=== PATIENT | male | born 1955 | race Caucasian/White ===

== ENCOUNTER 2023-02-14 21:13 | Emergency (ER) | payer BC ==
--- OUTSIDE RECORDS SUMMARY | 2023-02-14 21:17 | XMS REPORT | Continuity of Care Document ---
:1955 Author Organization [facility] t Address [address] [facility] [address] [place] [address] Care Team Providers Name Role Phone Asked, No Pcp Primary Care Physician Unavailable Negin Bocanegra Attending Clinician Tom Gramajo MD Attending Clinician Jeramie Cueva PTA Attending Clinician Unavailable Lindsey Busch PT Attending Clinician Unavailable Yeimy Bhatti PTA Attending Clinician Unavailable Annalee Mann RN Attending Clinician Unavailable Cherelle Rojo PT Attending Clinician Unavailable Renata San MD Attending Clinician [phone] Mita Mittal APRN Attending Clinician [phone] Kayla Murphy RN Attending Clinician Unavailable Lanette Adan Attending Clinician Unavailable Provider, Unknown Attending Clinician Unavailable TOM DIALLO Attending Clinician Unavailable MD TOM GRAMAJO Attending Clinician Unavailable TOM GRAMAJO Admitting Clinician Unavailable MD TOM GRAMAJO Admitting Clinician Unavailable Problems Condition Condition Condition Status Onset Resolution Last Treating Co mments Source Name Details Category Date Date Treatment Clinician Date Status Status Disease Active Methodi post left post left 2-20 st knee knee 00:00: Hospita replacemen replacemen 00 l t, t, 09/10/22 09/10/22 Primary Primary Disease Active 2021-08 Overview: Meth kayla osteoarthr osteoarthr 2-[address] itis of itis of 00:00: g of this Hospi ta left knee left knee 00 note l might be different from the original. Added automatic ally from request for surgery [id number] History of History of Disease Active M ethodi total total 6-18 st right hip right hip 00:00: Hosp [facility] arthroplas arthroplas 00 l ty, ty, anterior. anterior. 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 Social History Social Habit Start Date Stop Date Quantity Comments Source Gender [facility] Sexual orientation [facility] Alcohol intake 2022-11-17 2022-11-17 Current drinker [facility] dist 00:00:00 00:00:00 of alcohol Hospital (finding) History of Social 2022-11-17 2022-11-[address] function 00:00:00 00:00:00 Hospital Tobacco use and 2022-07-07 2022-07-07 Smokeless [facility] exposure 00:00:00 00:00:00 tobacco non-user Hospital Sex Assigned At [birth year] [facility] 00:[facility] 00[facility]00 Hospital Smoking Status Start Date Stop Date Source Never smoked tobacco [facility] Medications Ordered Filled Start Stop Current Ordering Indication Dosage Frequency Signature Comments Components Source Medication Medication Date Date Medication? Clinician (SIG) Name Name ibuprofen Yes 200mg Q6H Take 1 Metho di (ADVIL) 200 4-[address] MG tablet 14:15: (200 mg Hospi ta 54 total) by l mouth every 6 (six) hours as needed for mild pain. HYDROcodone 2022- [place] [address] 1{tbl} Q6H Take 1 Methodi -acetaminop 2 02-[address] hen ([place]) 00:00: 05:59 mouth Hosp [facility] 10-325 mg 00 :00 every 6 l per tablet (six) hours as needed for moderate pain for up to 7 days .acute pain. Start after surgery. Max Daily Amount: 4 tablets aspirin 2022- No 81mg Q.5D Take 1 [facility] (ECOTRIN) 09-09 03-10 tablet (81 st 81 MG 00:00: 05:59 mg total) Hospit a enteric 00 :00 by mouth 2 l coated (two) tablet times a day for 30 days. Take with food amoxicillin 2022- No [id number] Take 4 [facility] (AMOXIL) 09-01- caps PO 1 st 500 MG 00:00: 05:59 hour prior Hosp [facility] capsule 00 :00 to dental l procedure. Vital Signs Vital Name Observation Time Observation Value Comments Source Body height 2022-11-17 19:15:00 182.9 cm [facility] Body weight 2022-11-17 19:15:00 93.441 kg [facility] BMI 2022-11-17 19:15:00 27.94 kg/m2 [facility] Systolic blood 2022-09-10 20:54:00 159 mm[Hg] [facility] Diastolic blood 2022-09-10 20:54:00 93 mm[Hg[facility] Heart rate 2022-09-10 20:54:00 60 /min [facility] Oxygen saturation in 2022-09-10 20:54:00 99 /min [facility] Arterial blood by Pulse oximetry Body temperature 2022-09-10 20:38:00 35.94 Adeola [facility] Respiratory rate 2022-09-10 20:38:00 18 /min [facility] Procedures Procedure Date / Time Performing Clinician Source Performed XR KNEE 3 VW LEFT 2022-09-22 20:58:[address] [facility] HC NERVE BLOCK INJ 2022-09-10 19:14:16 Jaswinder [facility] FEMORAL SINGLE W IMG ALEAH Francie ANESTHESIA SPINAL BLOCK 2022-09-10 19:12:58 Jaswinder [facility] Francie XR KNEE 1 OR 2 VW LEFT 2022-09-10 16:45:44 Avila, [facility] POC GLUCOSE 2022-09-10 16:34:00 Avila, [facility] SURGICAL PATHOLOGY 2022-09-10 15:51:00 Avila, [facility] REQUEST AK AN ELECTIVE 2022-09-10 14:03:00 Chon [facility] SUPRAGLOTTIC AIRWAY ARTHROPLASTY, KNEE, TOTAL 2022-09-10 13:55:00 Avila, [facility] POC GLUCOSE 2022-09-10 12:52:00 Avila, [facility] HEMOGLOBIN A1C 2022-08-25 22:45:00 [facility] PARTIAL THROMBOPLASTIN 2022-08-25 22:45:00 [facility] TIME (PTT) PROTHROMBIN TIME WITH INR 2022-08-25 22:45:00 [facility] CBC WITH PLATELET AND 2022-08-25 22:45:00 [facility] DIFFERENTIAL COMPREHENSIVE METABOLIC 2022-08-25 22:45:00 [facility] PANEL ESTIMATED GFR 2022-08-25 22:45:00 [facility] ECG PRE/POST OP 2022-08-25 22:42:28 [facility] URINE CULTURE 2022-08-25 22:35:00 [facility] URINALYSIS SCREEN AND 2022-08-25 22:35:00 [facility] MICROSCOPY, WITH REFLEX TO CULTURE XR LEG LENGTH EVALUATION 2022-07-07 20:06:32 AvilaTom lora wayne [facility] Encounters Start End Encounter Admission Attending Care Care Encounter Source Date/Time Date/Time Type Type Clinicians Facility Department ID 2022-11-17 2022-11-17 Office Evelyn 1.2.840.1 [id number] Methodi 14:00:00 16:07:27 Visit , Negin 41524.1.[address] 3.430.2.7 Hospit a .3.292150 l .8 2022-11-17 2022-11-17 Travel 1.2.840.1 1.2.263.136 4107 [id number] Methodi 00:00:00 00:00:[address] 3.430.2.7 0.2.7.3.698 Ho spita .3.370304 084.8 l .8 2022-11-17 2022-11-17 Outpatient [facility] [id number] [place] 00:00:00 00:00:[address] 2022-11-06 2022-11-06 Treatment AvilaTom 1.2.840.1 1 [id number] Methodi 07:00:00 08:00:00 Jeramie Cueva [address]20.1.[address] 3.430.2.7 Hospit a .3.823100 l .8 2022-11-06 2022-11-06 Outpatient AVILA, [facility] [id number] [address] [place] [address] 00:00:00 00:00:00 TOM Holm [facility] 2022-11-04 2022-11-04 Treatment AvilaTom 1.2.840.1 1 [id number] Methodi 07:00:00 08:00:00 Lindsey Busch 43323.1.1 634 s t 3.430.2.7 Hospit a .3.039586 l .8 2022-11-04 2022-11-04 Travel 1.2.840.1 1.2.821.537 4517 [id number] Methodi 00:00:00 00:00:[address] 3.430.2.7 0.2.7.3.698 Ho spita .3.197911 084.8 l .8 2022-11-04 2022-11-04 Outpatient AVILA, [facility] [id number] [place] 00:00:00 00:00:00 TOM [address] 2022-10-30 2022-10-30 Treatment Avila, Tom Gary 1.2.840.1 1 [id number] Methodi 07:00:00 08:00:00 Jeramie Cueva [address]62.[address] 3.430.2.7 Hospit a .3.652985 l .8 2022-10-30 2022-10-30 Travel 1.2.840.1 1.2.358.199 2047 [id number] Methodi 00:00:00 00:00:[address] 3.430.2.7 0.2.7.3.698 Ho spita .3.044419 084.8 l .8 2022-10-30 2022-10-30 Outpatient AVILA, [facility] [id number] [place] 00:00:00 00:00:00 TOM [address] 2022-10-28 2022-10-28 Treatment Avila, Tom Gary 1.2.840.1 1 [id number] Methodi 07:00:00 08:00:00 Lindsey Busch 26780.1.1 405 s t 3.430.2.7 Hospit a .3.834938 l .8 2022-10-28 2022-10-28 Travel 1.2.840.1 1.2.945.169 5337 [id number] Methodi 00:00:00 00:00:[address] 3.430.2.7 0.2.7.3.698 Ho spita .3.690379 084.8 l .8 2022-10-28 2022-10-28 Outpatient AVILA, [facility] [id number] [place] 00:00:00 00:00:00 TOM [address] 2022-10-23 2022-10-23 Treatment Avila, Tom Hernandezanson 1.2.840.1 1 [id number] Methodi 07:00:00 08:00:00 Lindsey Busch 03389.1.1 146 s t 3.430.2.7 Hospit a .3.769581 l .8 2022-10-23 2022-10-23 Outpatient AVILA, [facility] [id number] [place] 00:00:00 00:00:00 TOM [address] 2022-10-21 2022-10-21 Treatment Avila, Tom Gary 1.2.840.1 1 [id number] Methodi 07:00:00 08:00:00 Lindsey Busch 71007.1.1 144 s t 3.430.2.7 Hospit a .3.695404 l .8 2022-10-21 2022-10-21 Outpatient AVILA, [facility] [id number] [place] 00:00:00 00:00:00 TOM [address] 2022-10-15 2022-10-15 Treatment Avila, Tom Hernandezanson 1.2.840.1 1 [id number] Methodi 07:00:00 08:00:00 Jeramie Cueva [address]607.1.[address] 3.430.2.7 Hospit a .3.052127 l .8 2022-10-15 2022-10-15 Outpatient AVILA, [facility] [id number] [place] 00:00:00 00:00:00 TOM [address] 2022-10-13 2022-10-13 Treatment Avila, Tom Gary 1.2.840.1 1 [id number] Methodi 07:00:00 08:00:00 Lindsey Busch 61367.1.1 156 s t 3.430.2.7 Hospit a .3.301383 l .8 2022-10-13 2022-10-13 Outpatient AVILA, [facility] [id number] [place] 00:00:00 00:00:00 TOM [address] 2022-10-09 2022-10-09 Treatment Avila, Tom Gary 1.2.840.1 1 [id number] Methodi 07:00:00 08:00:00 Jeramie Cueva [address]178.1.[address] 3.430.2.7 Hospit a .3.991106 l .8 2022-10-09 2022-10-09 Outpatient AVILA, [facility] [id number] [place] 00:00:00 00:00:00 TOM [address] 2022-10-07 2022-10-07 Treatment Avila, Tom Gary 1.2.840.1 1 [id number] Methodi 07:00:00 08:00:00 Lindsey Busch 96115.1.1 807 s t 3.430.2.7 Hospit a .3.056875 l .8 2022-10-07 2022-10-07 Outpatient AVILA, [facility] [id number] [place] 00:00:00 00:00:00 TOM [address] 2022-10-02 2022-10-02 Treatment Avila, oTm Cookie 1.2.840.1 1 [id number] Methodi 07:00:00 08:00:00 Lindsey Busch 34316.1.1 558 s t 3.430.2.7 Hospit a .3.180614 l .8 2022-10-02 2022-10-02 Travel 1.2.840.1 1.2.231.879 5594 [id number] Methodi 00:00:00 00:00:[address] 3.430.2.7 0.2.7.3.698 Ho spita .3.785917 084.8 l .8 2022-10-02 2022-10-02 Outpatient AVILA, [facility] [id number] [place] 00:00:00 00:00:00 TOM [address] 2022-09-30 2022-09-30 Treatment Avila, Tom Gary 1.2.840.1 1 [id number] Methodi 07:00:00 08:00:00 Jeramie Cueva [address]0412.1.[address] 3.430.2.7 Hospit a .3.340381 l .8 2022-09-30 2022-09-30 Travel 1.2.840.1 1.2.877.168 1423 [id number] Methodi 00:00:00 00:00:[address] 3.430.2.7 0.2.7.3.698 spita .3.493550 084.8 l .8 2022-09-30 2022-09-30 Outpatient AVILA, [facility] [id number] [place] 00:00:00 00:00:00 TOM Li7 [facility] 2022-09-25 2022-09-25 Treatment Avila, Tom Gary 1.2.840.1 1 [id number] Methodi 07:00:00 08:00:00 Lindsey Busch 25573.1.1 556 s t 3.430.2.7 Hospit a .3.223039 l .8 2022-09-25 2022-09-25 Outpatient AVILA, [facility] [id number] [address] [place] [address] 00:00:00 00:00:00 TOM Li6 [facility] 2022-09-23 2022-09-23 Treatment Avila, Tom Gary 1.2.840.1 1 [id number] Methodi 07:00:00 08:00:00 Yeimy Bhatti [address] 3.430.2.7 Hospit a .3.331957 l .8 2022-09-23 2022-09-23 Outpatient AVILA, [facility] [id number] [place] 00:00:00 00:00:00 TOM Bey [facility] 2022-09-22 2022-09-22 Replaced By [facility] 1.2.840.1 [id number] Methodi 14:45:00 15:34:49 Negin Santamaria 75810.1.[address] 3.430.2.7 Hospit a .3.267429 l .8 2022-09-22 2022-09-22 Travel 1.2.840.1 1.2.673.300 3795 [id number] Methodi 00:00:00 00:00:[address] 3.430.2.7 0.2.7.3.698 Ho spita .3.862688 084.8 l .8 2022-09-22 2022-09-22 Outpatient [facility] [id number] [place] 00:00:00 00:00:[address] 2022-09-22 2022-09-22 Outpatient [facility] [id number] [place] 00:00:00 00:00:[address] 2022-09-19 2022-09-19 Telephone Mackenzie Annalee 1.2.840.1 [id number] Methodi 00:00:00 00:00:[address] 3.430.2.7 Hospit a .3.415799 l .8 2022-09-18 2022-09-18 Treatment Avila, Tom Cookie 1.2.840.1 1 [id number] Methodi 07:00:00 08:00:00 Cherelle Rojo [address]250.1.[address] 3.430.2.7 Hospit a .3.860461 l .8 2022-09-18 2022-09-18 Outpatient AVILA, [facility] [id number] [place] 00:00:00 00:00:00 TOM Li4 [facility] 2022-09-15 2022-09-15 Treatment Avila, Tom Cookie 1.2.840.1 1 [id number] Methodi 07:00:00 08:00:00 Jeramie Cueva [address]296.1.[address] 3.430.2.7 Hospit a .3.909868 l .8 2022-09-15 2022-09-15 Travel 1.2.840.1 1.2.286.206 8551 [id number] Methodi 00:00:00 00:00:[address] 3.430.2.7 0.2.7.3.698 Ho spita .3.713861 084.8 l .8 2022-09-15 2022-09-15 Outpatient AVILA, [facility] [id number] [place] 00:00:00 00:00:00 TOM [address] 2022-09-12 2022-09-12 Evaluation Avila, Tom Gary 1.2.840.1 [id number] Methodi 07:00:00 08:00:00 Lindsey Busch 61940.1.1 541 s t 3.430.2.7 Hospit a .3.876680 l .8 2022-09-12 2022-09-12 Plan of 1.2.840.1 [id number] Methodi 00:00:00 00:00:[address] Documentat 3.430.2.7 Hos rubin ion .3.954476 l .8 2022-09-12 2022-09-12 Travel 1.2.840.1 1.2.078.417 0184 [id number] Methodi 00:00:00 00:00:[address] 3.430.2.7 0.2.7.3.698 Ho spita .3.610284 084.8 l .8 2022-09-12 2022-09-12 Outpatient AVILA, [facility] [id number] [place] 00:00:00 00:00:00 TOM [address] 2022-09-10 2022-09-10 Hospital Avila, 1.2.840.1 [id number] Methodi 05:54:00 15:37:00 Encounter Tom 56062.1.[address] Gary 3.430.2.7 Hospit a .3.136290 l .8 2022-09-10 2022-09-10 Surgery Avila, 1.2.840.1 [id number] 0420 Methodi 08:00:00 11:25:[address] Gary 3.430.2.7 Hospit a .3.964122 l .8 2022-09-10 2022-09-10 Anesthesia Renata San ta 1.2.840.1 [id number] Methodi 07:55:00 10:37:00 Event Mita Mittal 68472.1.[address] 3.430.2.7 Hospit a .3.493773 l .8 2022-09-10 2022-09-10 Outpatient AVILA, [facility] [id number] [place] 00:00:00 00:00:00 TOM [address] 2022-09-09 2022-09-09 Refill Evelyn 1.2.840.1 [id number] Methodi 00:00:00 00:00:00 , Negin 18551.1.[address] 3.430.2.7 Hospit a .3.596544 l .8 2022-09-01 2022-09-01 Telephone Jeffrey 1.2.840.1 [id number] Methodi 00:00:00 00:00:[address] 3.430.2.7 Hospit a .3.601854 l .8 2022-09-01 2022-09-01 Orders Jeffrey 1.2.840.1 [id number] Methodi 00:00:00 00:00:00 Only Kayla 91840.1.[address] 3.430.2.7 Hospit a .3.942622 l .8 2022-08-25 2022-08-25 Pre-Admiss Avila, 1.2.840.1 [id number] Methodi 16:10:00 17:10:00 ion Tom 16291.1.[address] Testing Gary 3.430.2.7 Hospit a .3.897193 l .8 2022-08-25 2022-08-25 Office Evelyn 1.2.840.1 [id number] Methodi 14:15:00 17:05:11 Visit , Negin 61250.1.[address] 3.430.2.7 Hospit a .3.836780 l .8 2022-08-25 2022-08-25 Travel 1.2.840.1 1.2.578.277 5483 [id number] Methodi 00:00:00 00:00:[address] 3.430.2.7 0.2.7.3.698 Ho spita .3.230726 084.8 l .8 2022-08-25 2022-08-25 Outpatient [facility] [id number] [place] 00:00:00 00:00:[address] 2022-08-25 2022-08-25 Outpatient AVILA, [facility] [id number] [place] 00:00:00 00:00:00 TOM [address] 2022-08-14 2022-08-14 Travel 1.2.840.1 1.2.862.499 4527 [id number] Methodi 00:00:00 00:00:[address] 3.430.2.7 0.2.7.3.698 Ho spita .3.370529 084.8 l .8 2022-08-11 2022-08-11 Telephone Adan, 1.2.840.1 [id number] Methodi 00:00:00 00:00:[address] 3.430.2.7 Hospit a .3.801085 l .8 2022-07-24 2022-07-24 Documentat Provider, 1.2.840.1 [id number] Methodi 00:00:00 00:00:00 ion Unknown 35657.1.[address] 3.430.2.7 Hospit a .3.743134 l .8 2022-07-24 2022-07-24 Orders Adan, 1.2.840.1 [id number] Methodi 00:00:00 00:00:00 Only Lanette 99063.1.[address] 3.430.2.7 Hospit a .3.712528 l .8 2022-07-07 2022-07-07 Office Avila, 1.2.840.1 [id number] Methodi 14:00:00 17:12:27 Visit Tom 37052.1.[address] Gary 3.430.2.7 Hospit a .3.914164 l .8 2022-07-07 2022-07-07 Travel 1.2.840.1 1.2.468.558 8877 [id number] Methodi 00:00:00 00:00:[address] 3.430.2.7 0.2.7.3.698 Ho spita .3.930224 084.8 l .8 2022-07-07 2022-07-07 Outpatient AVILA, [facility] [id number] [place] 00:00:00 00:00:00 TOM [address] 2022-07-07 2022-07-07 Outpatient AVILA, [facility] [id number] [place] 00:00:00 00:00:00 TOM [address] 2022-01-31 2022-01-31 Outpatient AVILA, [facility] [id number] [place] 00:00:00 00:00:00 TOM [address] 2022-01-31 2022-01-31 Outpatient AVILA, [facility] [id number] [place] 00:00:00 00:00:00 TOM [address] 2021-05-29 2021-05-29 Outpatient [facility] [id number] [place] 00:00:00 00:00:[address] 2021-01-04 2021-01-04 Outpatient AVILA, [facility] [id number] [place] 00:00:00 00:00:00 TOM [address] 2021-01-04 2021-01-04 Outpatient AVILA, [facility] [id number] [place] 00:00:00 00:00:00 TOM [address] 2020-08-31 2020-08-31 Outpatient IMANI, [facility] [id number] [place] 00:00:00 00:00:00 TOM [address] 2020-08-10 2020-08-10 Outpatient IMANI, [facility] [id number] [place] 00:00:00 00:00:00 TOM [address] 2020-06-08 2020-06-08 Outpatient AVILA, [facility] [id number] [place] 00:00:00 00:00:00 TOM [address] 2020-06-08 2020-06-08 Outpatient AVILA, [facility] [id number] [place] 00:00:00 00:00:00 TOM [address] 2020-03-02 2020-03-02 Outpatient [facility] [id number] [place] 00:00:00 00:00:[address] 2020-03-02 2020-03-02 Outpatient [facility] [id number] [place] 00:00:00 00:00:[address] 2020-02-23 2020-02-24 Outpatient AVILA, [place] [id number] [place] 00:00:00 00:00:00 TOM [address] 2020-02-20 2020-02-20 Outpatient AVILA, [facility] [id number] [place] 00:00:00 00:00:00 TOM [address] 2020-02-20 2020-02-20 Outpatient [facility] [id number] [place] 00:00:00 00:00:[address] 2020-01-20 2020-01-20 Outpatient [facility] [id number] [place] 00:00:00 00:00:[address] Results Test Description Test Time Test Comments Results Result Comments Source Surgical pathology request 2022-11-01 01:54:20 Test Item Value Reference Range Interpretation Comme nts Case number (test code = 4429134) [id number] Surgical pathology report (test code = See link below for PDF Lab R eport 8658) Result status (test code = 7284575) This is Final Report for [id number] 8449-2 [facility] [id number] 16:35:00 Test Item Value Reference Range Interpretation Comments POC glucose (test code 116 mg/dL 65-99 H Opera tor Name: Monson = 36443-2) ArmandoDevice I D: [id number] able: [facility] Notified sand slinger Interpretation Abnormal (test code = 51538-8) [facility] Pre/Post [id number] 04:19:07 Test Item Value Reference Range Interpretation Comments Ventricular rate (test 74 code = 253) Atrial rate (test code 74 = 255) AK interval (test code 168 = 266) QRSD interval (test 90 code = 260) QT interval (test code 396 = 264) QTC interval (test code 439 = 265) P axis 1 (test code = 56 267) QRS axis 1 (test code = 51 268) T wave axis (test code 22 = 270) EKG impression (test Normal sinus code = 273) rhythm-Normal ECG-In automated comparison with ECG of 20-FEB-2020 12:25,-No significant change was found[id number] 02:25:00 Test Item Value Reference Range Interpretation Comments Urine culture (test SEE COMMENT Bacteriu evelyn screen code = 8859430) negative. [facility] [Presence] in Respiratory specimen by [facility] with probe [id number] 17:50:03 Test Item Value Reference Range Interpretation Comments SARS-CoV-2 (COVID-19) RNA Not detected Not-Detected [Presence] in Respiratory specimen by [facility] with probe detection (test code = 84759-0) DEDRICK NELSON EMMONS
[2023-02-14] MEDS ORDERED: CYCLOBENZAPRINE 10 MG TAB ONE (22:09)
[2023-02-14] MEDS ORDERED: ONDANSETRON 4 MG/2 ML VIAL ONE (22:10)
[2023-02-14] MEDS ORDERED: MORPHINE 4 MG/ML SYR ONE (22:10)
--- NOTE | 2023-02-14 22:43 | RAD REPORT ---
EXAM DESCRIPTION: CT - Head C Spine Cap Wo Con - 02/14/2023 10:28 pm CLINICAL HISTORY: Trauma, head and neck injury. Chest, abdomen and pelvis pain. TRAUMA COMPARISON: No comparisons TECHNIQUE: CT head without contrast. CT cervical spine without contrast with coronal and sagittal reformatted images. CT chest, abdomen and pelvis without contrast with coronal and sagittal reformatted images of the spi ne. All CT scans are performed using dose optimization technique as appropriate and may include automated exposure control or mA/KV adjustment according to patient size. FINDINGS: CT HEAD WITHOUT CONTRAST: No intracranial hemorrhage, hydrocephalus or extra-axial fluid collection. No areas of brain edema o r midline shift. The paranasal sinuses and mastoids are clear. The calvarium is intact. CT CERVICAL SPINE WITHOUT CONTRAST: No fracture or subluxation. Moderate lower cervical degenerative changes. The prevertebral soft tissu es are normal in thickness. CT CHEST, ABDOMEN, PELVIS WITHOUT CONTRAST: NOTE: Lack of contrast is a significant limitation in the assessment of trauma related findings. Spec ifically, solid organ, vascular and bowel evaluation is significantly limited. The lungs are clear.Small hiatal hernia.No pneumothorax or pericardial/pleural fluid. No evidence of intra-abdominal visceral injury, free fluid or free air is seen within the above detai led limitations. Inferior 5 mm calculus left kidney without hydronephrosis. No concerning pelvic findings. There is a burst fracture involving the L1 vertebral body. Vertebral body height loss of 50%. There i s also involvement of the right pedicle which is well also fractured. 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 Right total hip arthroplasty. IMPRESSION: Burst fracture involves the L1 vertebral body with 50% loss of vertebral body height. Fr acture is also seen to involve the right L1 pedicle. There is moderate canal compromise present cause d by this fracture. Consider MRI followup for evaluation of the cord.
--- NOTE | 2023-02-14 23:49 | ER ---
Nurse's Notes [facility] Name: Maximus Onofre Age: 67 yrs Sex: Male : 1955 Arrival Date: 02/14/2023 Time: 21:13 Bed 16 Private MD: Diagnosis: Fall from ladder;L1 burst fracture with retropulsion Presentation: 02/14 21:18 Chief complaint: Patient states: I fell from the third step off of a ladder about an kd3 hour ago and i landed flat on my back and now my lower back hurts a lot. I can move and feel my legs but i hurt so bad. Coronavirus screen: Vaccine status: Patient reports receiving the 2nd dose of the covid vaccine. Ebola Screen: No symptoms or risks identified at this time. Initial Sepsis Screen: Does the patient meet any 2 criteria? No. Patient's initial sepsis screen is negative. Does the patient have a suspected source of infection? No. Patient's initial sepsis screen is negative. Risk Assessment: Do you want to hurt yourself or someone else? Patient reports no desire to harm self or others. Onset of symptoms was February 14, 2023. 21:18 Method Of Arrival: Wheelchair kd3 21:18 Acuity: LUC 3 kd3 Triage Assessment: 21:20 General: Appears uncomfortable, Behavior is calm, cooperative. Pain: Complains of pain kd3 in low back area, left low back and right low back. Neuro: Level of Consciousness is awake, alert, obeys commands, Oriented to person, place, time, situation. Cardiovascular: Patient's skin is warm and dry. Respiratory: Airway is patent Trachea midline Respiratory effort is even, unlabored, Respiratory pattern is regular, symmetrical. Historical: - Allergies: 21:20 No Known Allergies; kd3 - Immunization history:: Adult Immunizations up to date. - Social history:: Smoking status: Patient denies any tobacco usage or history of. - Family history:: not pertinent. Screenin:00 [facility] ED Fall Risk Assessment (Adult) History of falling in the last 3 months, vc1 including since admission Yes- single mechanical fall (1 pt) Confusion or Disorientation No (0 pts) Intoxicated or Sedated No (0 pts) Impaired Gait No (0 pts) Mobility Assist Device Used No (0 pt) Altered Elimination No (0 pt) Score/Fall Risk Level 0 - 2 = Low Risk Oriented to surroundings, Maintained a safe environment, Educated pt \T\ family on fall prevention, incl call for assistance when getting out of bed. Abuse screen: Denies threats or abuse. Nutritional screening: No deficits noted. Tuberculosis screening: No symptoms or risk factors identified. Assessment: 22:39 Reassessment: Patient and/or family updated on plan of care and expected duration. Pain vc1 level reassessed. Patient is alert, oriented x 3, equal unlabored respirations, skin warm/dry/pink. Patient states feeling better. Patient states symptoms have improved. 02/15 01:05 Reassessment: Patient and/or family updated on plan of care and expected duration. Pain vc1 level reassessed. Patient is alert, oriented x 3, equal unlabored respirations, skin warm/dry/pink. Patient states feeling better. Patient states symptoms have improved. Vital Signs: 02/14 21:18 BP 188 / 95; Pulse 87; Resp 18; Temp 98.8; Pulse Ox 98% on R/A; Weight 90.72 kg; Height kd3 6 ft. 0 in. ; 22:05 BP 156 / 85; Pulse 89; Resp 17; Pulse Ox 97% on R/A; vc1 02/15 00:20 BP 154 / 91; Pulse 81; Resp 17; Pulse Ox 96% ; vc1 01:00 BP 137 / 78; Pulse 85; Resp 14; Pulse Ox 95% on R/A; vc1 02/14 21:18 Body Mass Index 27.12 (90.72 kg, 182.88 cm) kd3 ED Course: 02/14 21:17 Patient arrived in ED. kd3 21:20 Triage completed. kd3 21:20 Arm band placed on right wrist. kd3 21:22 Edward Pat MD is Attending Physician. rt 22:00 Inserted saline lock: 20 gauge in left antecubital area, using aseptic technique. vc1 22:30 CT Traumagram (Head C Spine CAP wo con) In Process Unspecified. EDMS 22:37 Herlinda Marin, SHERON is Primary Nurse. vc1 02/15 01:08 No provider procedures requiring assistance completed. Patient transferred, IV remains vc1 in place. 01:10 Patient has correct armband on for positive identification. Bed in low position. Call vc1 light in reach. Pulse ox on. NIBP on. 01:10 Provided Education on: need for transfer; npo. vc1 Administered Medications: 02/14 22:00 Drug: morphine IVP or IV 4 mg Route: IVP; Infused Over: 4 mins; Site: right antecubital;vc1 22:30 Follow up: Response: No adverse reaction; Marked relief of symptoms; Pain is decreased vc1 22:00 Drug: Ondansetron IVP 4 mg Route: IVP; Site: left antecubital; vc1 22:30 Follow up: Response: No adverse reaction vc1 22:00 Drug: Cyclobenzaprine PO 10 mg Route: PO; vc1 22:30 Follow up: Response: No adverse reaction; Marked relief of symptoms; Pain is decreased vc1 02/15 00:47 Drug: Ketorolac IVP 15 mg Route: IVP; Site: left antecubital; vc1 01:10 Follow up: Response: No adverse reaction; Marked relief of symptoms; Pain is decreased vc1 01:10 Drug: morphine IVP or IV 4 mg Route: IVP; Infused Over: 4 mins; Site: left antecubital; vc1 01:11 Follow up: Response: Medication administered at transfer vc1 Medication: 01:10 VIS not applicable for this client. vc1 Outcome: 02/14 23:49 ER care complete, transfer ordered by . rt 02/15 01:10 Transferred by ground EMS to [facility], Transfer form completed. X-rays sent vc1 w/ patient. Condition: stable Instructed on the need for transfer. 01:11 Patient left the ED. vc1 Signatures: Dispatcher [employer] Linda Babin RN RN kd3 Herlinda Marin RN RN vc1 Edward Pat MD MD rt Corrections: (The following items were deleted from the chart) 00:47 00:47 morphine IVP or IV 4 mg IVP in left antecubital over 4 mins vc1 vc1
--- NOTE | 2023-02-14 23:49 | EDPHYS ---
Physician Documentation [facility] Name: Maximus Onofre Age: 67 yrs Sex: Male : 1955 Arrival Date: 02/14/2023 Time: 21:13 Bed 16 Private MD: ED Physician Edward Pat HPI: 02/15 00:05 This 67 yrs old Male presents to ER via Wheelchair with complaints of Fall Injury. rt 00:05 Patient presents to the ED with injury via falling off a ladder, for about 6 foot onto rt a hard gravel surface. The patient states that he immediately had a mid back pain. Patient states he landed directly on his back. States that he hit his head but denies have any significant headache. He states that he has pain when he takes a deep breath but denies other injuries or other acute complaints, symptoms are moderate severity, no other aggravating or alleviating factors. Historical: - Allergies: 02/14 21:20 No Known Allergies; kd3 - Immunization history:: Adult Immunizations up to date. - Social history:: Smoking status: Patient denies any tobacco usage or history of. - Family history:: not pertinent. ROS: 02/15 00:05 Constitutional: Negative for fever, chills, and weight loss, Eyes: Negative for injury, rt pain, redness, and discharge, Cardiovascular: Negative for chest pain, palpitations, and edema, Respiratory: Negative for shortness of breath, cough, wheezing, and pleuritic chest pain, Abdomen/GI: Negative for abdominal pain, nausea, vomiting, diarrhea, and constipation, MS/Extremity: Negative for injury and deformity, Skin: Negative for injury, rash, and discoloration, Neuro: Negative for headache, weakness, numbness, tingling, and seizure, Psych: Negative for depression, anxiety, suicide ideation, homicidal ideation, and hallucinations. Back: Positive for injury or acute deformity, pain at rest. Exam: 00:05 Constitutional: This is a well developed, well nourished patient who is awake, alert, rt and in no acute distress. Head/Face: Normocephalic, atraumatic. Chest/axilla: Normal chest wall appearance and motion. Nontender with no deformity. No lesions are appreciated. Cardiovascular: Regular rate and rhythm with a normal S1 and S2. No gallops, murmurs, or rubs. Normal PMI, no JVD. No pulse deficits. Respiratory: Lungs have equal breath sounds bilaterally, clear to auscultation and percussion. No rales, rhonchi or wheezes noted. No increased work of breathing, no retractions or nasal flaring. Abdomen/GI: Soft, non-tender, with normal bowel sounds. No distension or tympany. No guarding or rebound. No evidence of tenderness throughout. MS/ Extremity: Pulses equal, no cyanosis. Neurovascular intact. Full, normal range of motion. Neuro: Awake and alert, GCS 15, oriented to person, place, time, and situation. Cranial nerves II-XII grossly intact. Motor strength 5/5 in all extremities. Sensory grossly intact. Cerebellar exam normal. Normal gait. Psych: Awake, alert, with orientation to person, place and time. Behavior, mood, and affect are within normal limits. 00:05 Back: Midline tenderness at the upper lumbar region, no step-off. Vital Signs: 02/14 21:18 BP 188 / 95; Pulse 87; Resp 18; Temp 98.8; Pulse Ox 98% on R/A; Weight 90.72 kg; Height kd3 6 ft. 0 in. ; 22:05 BP 156 / 85; Pulse 89; Resp 17; Pulse Ox 97% on R/A; vc1 02/15 00:20 BP 154 / 91; Pulse 81; Resp 17; Pulse Ox 96% ; vc1 01:00 BP 137 / 78; Pulse 85; Resp 14; Pulse Ox 95% on R/A; vc1 02/14 21:18 Body Mass Index 27.12 (90.72 kg, 182.88 cm) kd3 MDM: 02/14 21:22 Patient medically screened. rt 02/15 00:05 Differential diagnosis: Fracture, contusion, pneumothorax. Data reviewed: vital signs, rt nurses notes, lab test result(s), radiologic studies. Consideration of Admission/Observation Escalation of care including admission/observation considered. Patient requires transfer to trauma center for significant spinal fracture. Management of patient was discussed with the following: Biomedical Specialist: Discussed with accepting neurosurgeon at [facility]. I considered the following discharge prescriptions or medication management in the emergency department Medications were administered in the Emergency Department. See MAR. Independent interpretation of the following test(s) in the Emergency Department CT Scan: My interpretation is L1 vertebral body fracture seen on interpretation of the CT scan image. Counseling: I had a detailed discussion with the patient and/or guardian regarding: the historical points, exam findings, and any diagnostic results supporting the discharge/admit diagnosis, radiology results, the need to transfer to another facility. 02/14 23:32 Order name: CBC with Diff; Complete Time: 00:14 rt 02/14 23:32 Order name: CMP; Complete Time: 00:14 rt 02/14 21:32 Order name: CT Traumagram (Head C Spine CAP wo con); Complete Time: 22:45 rt Administered Medications: 02/14 22:00 Drug: morphine IVP or IV 4 mg Route: IVP; Infused Over: 4 mins; Site: right antecubital;vc1 22:30 Follow up: Response: No adverse reaction; Marked relief of symptoms; Pain is decreased vc1 22:00 Drug: Ondansetron IVP 4 mg Route: IVP; Site: left antecubital; vc1 22:30 Follow up: Response: No adverse reaction vc1 22:00 Drug: Cyclobenzaprine PO 10 mg Route: PO; vc1 22:30 Follow up: Response: No adverse reaction; Marked relief of symptoms; Pain is decreased vc1 02/15 00:47 Drug: Ketorolac IVP 15 mg Route: IVP; Site: left antecubital; vc1 01:10 Follow up: Response: No adverse reaction; Marked relief of symptoms; Pain is decreased vc1 01:10 Drug: morphine IVP or IV 4 mg Route: IVP; Infused Over: 4 mins; Site: left antecubital; vc1 01:11 Follow up: Response: Medication administered at transfer vc1 Disposition Summary: 02/14/23 23:49 Transfer Ordered Transfer Location: [facility] rt Reason: Higher level of care rt Condition: Stable rt Problem: new rt Symptoms: are unchanged rt Accepting Physician: Dr. Fonseca(02/15/23 01:11) vc1 Diagnosis - Fall from ladder rt - L1 burst fracture with retropulsion rt Discharge Instructions: - Discharge Summary Sheet vc1 Forms: - SBAR form vc1 - Medication Reconciliation Form rt Signatures: Dispatcher [employer] Linda Babin RN RN kd3 Herlinda Marin RN RN vc1 Edward Pat MD MD rt Corrections: (The following items were deleted from the chart) 01:11 02/14 23:49 Dr. Fonseca rt vc1
[2023-02-14 23:50] LABS: Absolute Lymphocytes (CBC) 0.6 K/uL (0.7-4.9); Hematocrit 43.4 % (39.6-49.0); Lymphocytes % 4.4 % (15.3-44.8); MCV 87.6 fL (80-100); MPV 6.9 fL (7.6-11.3); RBC Red Blood Cell Count 4.95 M/uL (4.33-5.43)
[2023-02-15 00:11] LABS: Bilirubin Total 0.4 mg/dL (0.2-1.0); Potassium 4.4 mEq/L (3.5-5.1); Protein, Total 7.6 g/dL (6.4-8.2)
[2023-02-15] MEDS ORDERED: KETOROLAC 30 MG/ML INJ ONE (00:35)
[2023-02-15] MEDS ORDERED: MORPHINE 4 MG/ML SYR ONE (00:35)
[2023-02-15 01:37] VITALS: TEMP 98.8
[2023-02-15 01:39] VITALS: BP 137/78; O2SAT 95
== END 2023-02-15 01:11 | disposition short-term general hospital (02) ==
LOC: ER 21:13
DX: S32.011A Stable burst fracture of first lumbar vertebra, initial encounter for closed fracture (principal); W11.XXXA Fall on and from ladder, initial encounter
CPT/HCPCS: 85025; 36415; 80053; 70450; 71250; 72125; 99285; J2405